=== PATIENT | male | born 1955 | race Caucasian/White ===

== ENCOUNTER → 2020-12-14 | Outpatient (CLI) | payer BC ==
[~2020-12-14] MED LIST: ANTIHISTAMINE25 MG; IOPAMIDOL 370 MG/ML 200 ML INFUS..BTL INJ ONE; MONTELUKAST SOD10 MG PO; PROTONIX40 M2; SODIUM CHLORIDE 0.9% 50ML 50 ML ONE; Z.0.LOTREL 5-20 MG1 PO
[2020-12-14 16:32] LABS: BLOOD UREA NITROGEN 17 mg/dL (7-26); BUN/CREATININE RATIO 18 (6-25); CREATININE, SERUM 0.97 mg/dL (0.72-1.25); EST GLOMERULAR FILTRATION RATE > 60 ML/MIN (60-)
== END ==
LOC: CT 15:38
PROVIDERS: ATTEND Surgery
DX: R10.11 Right upper quadrant pain (principal)
CPT/HCPCS: 36415; 74177; 82565; 84520; Q9967

== ENCOUNTER → 2021-01-11 | Outpatient (CLI) | payer BC ==
[~2021-01-11] MED LIST changes: -IOPAMIDOL 370 MG/ML 200 ML INFUS..BTL INJ ONE; -SODIUM CHLORIDE 0.9% 50ML 50 ML ONE
== END ==
LOC: MRI 07:32
PROVIDERS: ATTEND Surgery
DX: M54.6 Pain in thoracic spine (principal)
CPT/HCPCS: 72146